=== PATIENT | male | born 1960 | race Two or more races ===

== ENCOUNTER 2025-09-17 20:35 | Inpatient (IN) | payer OTHER, MEDICARE ==
[~2025-09-17] VITALS: Ht 170.2 cm; Wt 77.1 kg
[2025-09-17] MEDS ORDERED: KETOROLAC TROMETHAMINE INJ 30 MG/ML VIAL ONE (22:27)
[2025-09-17] MEDS ORDERED: oxyCODONE/APAP (5/325 MG) 1 UDTAB TABLET ONE (22:27)
[2025-09-17] MEDS: KETOROLAC TROMETHAMINE INJ 30 MG/ML VIAL IM ONE (22:32)
[2025-09-17] MEDS: oxyCODONE/APAP (5/325 MG) 1 UDTAB TABLET PO ONE (22:33)
[2025-09-17 22:53] LABS: PLATELET COUNT (AUTO) 153 K/uL (150-450); RED BLOOD CELL COUNT(AUTO) 3.95 MIL/uL (4.5-6.0); RED CELL DISTRIBUTION WIDTH 14.0 % (11.5-15.0); WHITE BLOOD COUNT (AUTO) 9.8 K/uL (4.3-11.0)
[2025-09-17 22:58] LABS: CALCIUM, SERUM 8.9 mg/dL (8.5-10.1); CREATININE 1.0 mg/dL (0.6-1.3); SODIUM SERUM 137.0 mmol/L (136-145); UREA NITROGEN, BLOOD 24.0 mg/dL (7-18)
[2025-09-17 23:04] LABS: ASPARTATE AMINOTRANSFERASE 32.0 U/L (15-37); INR 1.07 (0.91-1.10); TOTAL PROTEIN, SERUM 7.1 g/dL (6.4-8.2)
[2025-09-18 03:00] VITALS: BP 126/76; TEMP 97.7; O2SAT 97
[2025-09-18] MEDS ORDERED: ACETAMINOPHEN 325 MG TABLET PO PRN (04:00)
[2025-09-18] MEDS ORDERED: ONDANSETRON HCL/PF 4 MG/2 ML VIAL IVP PRN (04:00)
[2025-09-18] MEDS: MORPHINE SULFATE INJ 2 MG/ML DISP.SYRIN IV PRN (04:50)
[2025-09-18] MEDS: ENOXAPARIN SODIUM 40 MG/0.4 ML DISP.SYRIN SQ SCH (04:52)
[2025-09-18 07:00] VITALS: BP 126/73; TEMP 98.1; O2SAT 96
[2025-09-18] MEDS ORDERED: BENA20TA9 PO (10:01)
[2025-09-18] MEDS ORDERED: HYDR-3980 PO (10:01)
[2025-09-18] MEDS ORDERED: ATOR40TA PO (10:01)
[2025-09-18] MEDS ORDERED: OMEP40CA21 PO (10:01)
[2025-09-18] MEDS: IV NS 0.9% 1,000 ML IV PRN (11:02)
[2025-09-18 16:20] VITALS: BP 118/72; TEMP 98.1; O2SAT 95
[2025-09-18 20:00] VITALS: BP 129/77; TEMP 98.2; O2SAT 96
[2025-09-18] MEDS: ATORVASTATIN 40 MG TABLET PO SCH (21:32)
[2025-09-19] MEDS: BENAZEPRIL HCL 20 MG TABLET PO SCH (06:35)
[2025-09-19 06:58] LABS: INR 1.12 (0.91-1.10); PLATELET COUNT (AUTO) 145 K/uL (150-450); RED BLOOD CELL COUNT(AUTO) 3.56 MIL/uL (4.5-6.0); RED CELL DISTRIBUTION WIDTH 14.1 % (11.5-15.0); WHITE BLOOD COUNT (AUTO) 7.2 K/uL (4.3-11.0)
[2025-09-19 07:16] LABS: ASPARTATE AMINOTRANSFERASE 21.0 U/L (15-37); CALCIUM, SERUM 8.6 mg/dL (8.5-10.1); CREATININE 0.9 mg/dL (0.6-1.3); PHOSPHORUS 2.7 mg/dL (2.5-4.9); SODIUM SERUM 137.0 mmol/L (136-145); TOTAL PROTEIN, SERUM 6.6 g/dL (6.4-8.2); UREA NITROGEN, BLOOD 15.0 mg/dL (7-18)
[2025-09-19 08:52] VITALS: BP 132/82; TEMP 99; O2SAT 95
[2025-09-19 09:15] LABS: IRON, SERUM 115 ug/dl (50-175)
[2025-09-19 09:28] LABS: LDL 75 mg/dL (0-99)
[2025-09-19 16:54] VITALS: BP 124/79; TEMP 98.1; O2SAT 96
[2025-09-19 20:00] VITALS: BP 135/83; TEMP 98.1; O2SAT 95
[2025-09-19] MEDS: HYDROCODONE/APAP 5/325MG TABLET PO PRN (21:28)
[2025-09-20 08:00] VITALS: BP 131/83; TEMP 99; O2SAT 95
[2025-09-20 08:32] VITALS: BP 131/83
[2025-09-20] MEDS ORDERED: Hydrocodone/Apap 5/325MG PO (11:32)
[2025-09-20] MEDS ORDERED: DICL100G26 TP (11:32)
[2025-09-20] MEDS ORDERED: HYDR-3972 PO (11:33)
[2025-09-20] MEDS ORDERED: DICL100G34 TP (13:50)
== END 2025-09-20 14:50 | disposition home health service (06) | DRG 351 ==
LOC: ER 21:26 → MED 09-18 02:33
PROVIDERS: ADMIT Nurse Practitioner Acute Care; ATTEND Nurse Practitioner Acute Care
DX: M25.452 Effusion, left hip (principal); E86.0 Dehydration; I10 Essential (primary) hypertension; J45.909 Unspecified asthma, uncomplicated; W01.0XXA Fall on same level from slipping, tripping and stumbling without subsequent striking against object, initial encounter; K21.9 Gastro-esophageal reflux disease without esophagitis; M16.12 Unilateral primary osteoarthritis, left hip; R73.9 Hyperglycemia, unspecified; Z86.12 Personal history of poliomyelitis; Z87.891 Personal history of nicotine dependence; Z96.642 Presence of left artificial hip joint; Y93.9 Activity, unspecified; Y92.89 Other specified places as the place of occurrence of the external cause; M25.752 Osteophyte, left hip
CPT/HCPCS: 36415; 71045-TC; 73552; 73700-TC; 80048-TC; 80053-TC; 80061-TC; 80076-TC; 82728-TC; 83540-TC; 83735-TC; 84100-TC; 85025-TC; 85610-TC; 85730-TC; 86850-TC; 87081-TC; 93307-TC; 97116-TC; 97530-TC; A4223; G0378; J1650; J1885; J2270; J7030